=== PATIENT | female | born 1930 | race Two or more races ===

== ENCOUNTER 2018-09-15 14:17 | Inpatient (IN) | payer MEDICARE ==
[~2018-09-15] VITALS: Ht 154.9 cm; Wt 46.3 kg
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
[2018-09-15 14:54] LABS: BILIRUBIN,URINE Negative (NEGATIVE); BLOOD, URINE Trace-intact Ery/uL (NEGATIVE); COLOR,URINE Yellow (YELLOW); KETONES,URINE Trace (NEGATIVE); LEUKOCYTE ESTERASE ,URINE Negative (NEGATIVE); NITRITE, URINE Negative (NEGATIVE); PROTEIN,URINE Trace mg/dl (NEGATIVE); UGLUCOSE Negative (NEGATIVE); UROBILINOGEN,URINE 0.2 EU/dL (0.2)
[2018-09-15 14:55] LABS: APPEARANCE,URINE Hazy (CLEAR)
[2018-09-15] MEDS ORDERED: IV NS 0.9% 1,000 ML BAG IV ONE (15:00)
[2018-09-15 15:01] LABS: BACTERIA,URINE Rare /HPF (None Seen); SQUAMOUS EPITHELIAL CELL,UR Few /HPF (None Seen); WBC,URINE 0-3 /HPF (0-3)
[2018-09-15 15:06] LABS: BASOPHILS % (AUTO) 0.4 % (0.0-2.0); EOSINOPHILS % (AUTO) 1.5 % (0.0-6.0); HEMATOCRIT 36 % (33-45); HEMOGLOBIN 11.4 g/dL (11.5-14.8); LYMPHOCYTES # (AUTO) 1.5 /CMM (0.8-4.8); LYMPHOCYTES % (AUTO) 24.1 % (20.0-44.0); MEAN CORPUSCULAR HGB CONC 32 g/dl (31.0-36.0); MEAN CORPUSCULAR VOLUME 87 fL (82-100); MONOCYTES # (AUTO) 0.6 /CMM (0.1-1.30); MONOCYTES % (AUTO) 8.6 % (2.0-12.0); NEUTROPHILS # (AUTO) 4.2 /CMM (1.8-8.9); NEUTROPHILS % (AUTO) 65.4 % (43.0-81.0); PLATELET COUNT (AUTO) 262 /CMM (150-450); RED BLOOD CELL COUNT(AUTO) 4.15 MIL/uL (4.0-5.2); WHITE BLOOD COUNT (AUTO) 6.4 K/uL (4.3-11.0)
[2018-09-15 15:12] LABS: CALCIUM, SERUM 9.2 mg/dL (8.5-10.1); CARBON DIOXIDE 33 mmol/L (21-32); CHLORIDE 106 mmol/L (98-107); CREATININE 0.8 mg/dL (0.6-1.3); GLUCOSE 97 mg/dL (74-106); POTASSIUM 4.7 mmol/L (3.5-5.1); SODIUM SERUM 142 mmol/L (136-145); UREA NITROGEN, BLOOD 13 mg/dL (7-18)
[2018-09-15 15:17] LABS: ALANINE AMINOTRANSFERASE 16 U/L (12-78); ALBUMIN 3.4 g/dL (3.4-5.0); ALKALINE PHOSPHATASE 76 U/L (46-116); ASPARTATE AMINOTRANSFERASE 16 U/L (15-37); BILIRUBIN,DIRECT 0.1 mg/dL (0.0-0.2); BILIRUBIN,TOTAL 0.2 mg/dL (0.2-1.0); TOTAL PROTEIN, SERUM 6.9 g/dL (6.4-8.2)
[2018-09-15 15:19] LABS: ACETAMINOPHEN 0 ug/ml (10-30); SALICYLATE 0.7 mg/dL (2.8-20.0)
[2018-09-15 15:33] LABS: THYROID STIMULATING HORMONE 5.972 uIU/mL (0.358-3.74)
--- NOTE | 2018-09-15 17:20 | NUR ---
CALLED MANNEQUIN WIG MAKER REAL ETA IS 60 MINS
--- NOTE | 2018-09-15 17:56 | NUR ---
sitter at bedside due to patient keep getting out of bed and pulling out her IV. Will continue to monitor accordingly.
--- NOTE | 2018-09-15 18:36 | NUR ---
pinky VENUE ATTENDANT at bedside for eval.
--- NOTE | 2018-09-15 19:20 | NUR ---
RECEIVED REPORT FROM GABINO PALM FOR SHELLY. PT RESTING IN BED WITH SIDE RAILS UP X2. NO S/S OF ACUTE DISTRESS NOTED. PT'S CAREGIVER BEDSIDE WITH PT. PT ON MONITOR AND POX. WILL CONTINUE TO MONITOR PT FOR COMFORT AND SAFETY.
--- NOTE | 2018-09-15 20:05 | NUR ---
REPORT GIVEN TO AURORA ROCKWELL RN [facility] FOR SHELLY.
[2018-09-15] MEDS ORDERED: LEVO25TA7 GT (20:16)
--- NOTE | 2018-09-15 20:25 | NUR ---
GPS 219-A
--- NOTE | 2018-09-15 20:55 | NUR ---
SPOKE TO AURORA MINE UTILITY OPERATOR USHA, SHE STATED SHE WILL BE REMOVING THE PT'S IV.
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
[2018-09-15] MEDS ORDERED: ACETAMINOPHEN 325 MG TABLET PO PRN (22:00)
[2018-09-15] MEDS ORDERED: MAGNESIUM HYDROXIDE 30 ML UDC PO PRN (22:00)
[2018-09-15] MEDS ORDERED: clonazePAM 0.5 MG TABLET PO PRN (22:00)
[2018-09-15] MEDS ORDERED: MAG HYDROX/AL HYDROX/SIMETH 30 ML UDC PO PRN (22:00)
[2018-09-16] MEDS ORDERED: Z GUARD REMEDY 2 OZ OINT TP PRN (06:30)
[2018-09-16 08:00] VITALS: BP 150/92
--- NOTE | 2018-09-16 08:02 | NUR ---
RN-CO: Patient is high fall risk, needs assistance in ADL. 1:[address] Roberson.
[2018-09-16 08:14] LABS: CHOLESTEROL 189 mg/dL (<200); HDL CHOLESTEROL 76 mg/dL (40-60); LDL 97 mg/dL (0-99); TRIGLYCERIDES 99 mg/dL (30-150)
[2018-09-16 08:27] LABS: ALANINE AMINOTRANSFERASE 13 U/L (12-78); ALKALINE PHOSPHATASE 64 U/L (46-116); ASPARTATE AMINOTRANSFERASE 17 U/L (15-37); BILIRUBIN,TOTAL 0.3 mg/dL (0.2-1.0); CALCIUM, SERUM 8.7 mg/dL (8.5-10.1); CARBON DIOXIDE 28 mmol/L (21-32); CHLORIDE 108 mmol/L (98-107); CREATININE 0.8 mg/dL (0.6-1.3); GLUCOSE 87 mg/dL (74-106); POTASSIUM 3.9 mmol/L (3.5-5.1); SODIUM SERUM 144 mmol/L (136-145); TOTAL PROTEIN, SERUM 6.2 g/dL (6.4-8.2); UREA NITROGEN, BLOOD 13 mg/dL (7-18)
[2018-09-16] MEDS: LEVOTHYROXINE SODIUM 25 MCG TABLET PO SCH (08:51)
--- NOTE | 2018-09-16 09:57 | NUR ---
BENNY contacted Frankie from [facility] ([phone]) and inquired about whether or not the pt can return to their facility upon discharge. He stated that once the pt is deemed stable, they will come evaluate and then determine if they will re-accept the pt.
--- NOTE | 2018-09-16 10:06 | NUR ---
SW called pt's DPOA, Yadira ([phone]), and informed her that the SW contacted [facility] and was informed that an evaluation upon discharge will determine whether or not the pt can return. BENNY stated that if the facility does not accept the pt back that the SW will secure alternative placement for the pt.
--- NOTE | 2018-09-16 12:15 | NUR ---
SW met the pt's DPOA, Yadira ([phone]), and the pt's academic hospitalist, Thaddeus Lock ([phone]), and discussed the pt's initial discharge plan. SW informed them that the pt may not be able to return to [facility] if upon evaluation they do not deem her appropriate for their facility and then the SW stated that she would find an alternative placement for the pt in that situation. BENNY informed them that she will keep them both updated.
[2018-09-16 16:00] VITALS: BP 142/69
[2018-09-16] MEDS: busPIRone 5 MG TABLET PO SCH (16:24)
[2018-09-16] MEDS ORDERED: SERTRALINE HCL 25 MG TABLET PO SCH (17:00)
[2018-09-16] MEDS: ENSURE ENLIVE 237 ML LIQUID (VANILLA) PO SCH (17:49)
[2018-09-16 20:00] VITALS: BP 147/77
[2018-09-16] MEDS: TEMAZEPAM 7.5 MG CAPSULE PO PRN (21:00)
--- NOTE | 2018-09-16 21:02 | NUR ---
TEMAZEPAM 7.5 MG CAP PO GIVEN FOR SLEEP. PATIENT KEEPS GETTING UP TO THE BATHROOM. SITTER AT THE BEDSIDE.
[2018-09-17 08:00] VITALS: BP 147/71
--- NOTE | 2018-09-17 10:47 | NUR ---
WOUND CARE CONSULT: PT REFUSED SKIN ASSESSMENT. WILL SEE PT PT CONDITION PERMITS. DISCUSSED SKIN PROTECTION WITH NURSING STAFF. PT AMBULATORY PER NURSING STAFF. CURRENT ISAAC SCORE IS 19.
[2018-09-17] MEDS: busPIRone 5 MG TABLET PO SCH ×2 (11:24→16:19)
[2018-09-17] MEDS: LEVOTHYROXINE SODIUM 25 MCG TABLET PO SCH (11:24)
--- NOTE | 2018-09-17 11:26 | NUR ---
WOUND CARE CONSULT: PT PRESENTS WITH BLANCHABLE REDNESS TO MIDBACK AND SACRUM, LEFT LOWER LEG BRUISING, PRESENT ON ADMISSION. PER NURSING DOCUMENTATION, RT LOWER LEG BRUISING PRESENT ON ADMISSION. RT ANTERIOR LOWER LEG HAS SKIN TEAR. RECOMMEND DPM CONSULT. PT IS THIN AND BONY. PT NOTED TO HAVE SKIN LESIONS TO BACK, PRESENT ON ADMISSION. RECOMMENDATIONS MADE FOR SKIN PROTECTION. DISCUSSED WITH NURSING STAFF. WILL SEE PRN. CURRENT ISAAC SCORE IS 19. SITTER AT BEDSIDE. MD IN AGREEMENT WITH PLAN OF CARE. Addendum: 09/17/18 at 1129 by SIM VACA WNDNU Amended: Links added.
[2018-09-17] MEDS: ENSURE ENLIVE 237 ML LIQUID (VANILLA) PO SCH ×2 (11:27→17:34)
--- NOTE | 2018-09-17 12:04 | NUR ---
Initial Discharge Plan: Pt currently resides at [facility] located at [address] [place] [id number]; . Per pt, she wants to return to her "home." BENNY contacted Frankie from [facility] and he stated that the pt can return upon evaluation. BENNY will work with the pt and the MD regarding appropriate discharge planning. BENNY will form a safe and proper discharge.
[2018-09-17 16:00] VITALS: BP 127/67
[2018-09-17] MEDS: SERTRALINE HCL 25 MG TABLET PO SCH (16:20)
--- NOTE | 2018-09-17 19:24 | NUR ---
PATIENT LAYING IN BED AWAKE, ALERT, INTERACTS WHEN ENGAGED. HAS 1:1 SITTER FOR SAFETY, HIGH RISK FOR FALL. INSTRUCTED TO ASK FOR HELP AT ALL TIMES.
[2018-09-17 20:00] VITALS: BP 130/60
[2018-09-17] MEDS: QUETIAPINE FUMARATE 25 MG TABLET PO SCH (21:42)
[2018-09-17] MEDS: TEMAZEPAM 7.5 MG CAPSULE PO PRN (21:43)
[2018-09-18 08:00] VITALS: BP 160/72
[2018-09-18] MEDS: LEVOTHYROXINE SODIUM 25 MCG TABLET PO SCH (09:01)
[2018-09-18] MEDS: busPIRone 5 MG TABLET PO SCH ×3 (09:01→17:30)
[2018-09-18] MEDS: ENSURE ENLIVE 237 ML LIQUID (VANILLA) PO SCH ×2 (09:02→17:30)
[2018-09-18 11:24] VITALS: BP 103/53
[2018-09-18 16:00] VITALS: BP 132/72
[2018-09-18] MEDS: SERTRALINE HCL 25 MG TABLET PO SCH ×2 (17:00→17:30)
[2018-09-18 20:00] VITALS: BP 151/82
[2018-09-18] MEDS: QUETIAPINE FUMARATE 25 MG TABLET PO SCH (21:14)
[2018-09-19 08:00] VITALS: BP 142/72
[2018-09-19] MEDS: LEVOTHYROXINE SODIUM 25 MCG TABLET PO SCH (08:32)
[2018-09-19] MEDS: busPIRone 5 MG TABLET PO SCH ×2 (08:38→16:24)
[2018-09-19] MEDS: ENSURE ENLIVE 237 ML LIQUID (VANILLA) PO SCH ×2 (08:38→16:24)
[2018-09-19 16:00] VITALS: BP 134/76
[2018-09-19] MEDS: SERTRALINE HCL 25 MG TABLET PO SCH (16:24)
[2018-09-19 20:21] VITALS: BP 111/65
[2018-09-19] MEDS: QUETIAPINE FUMARATE 25 MG TABLET PO SCH (21:14)
[2018-09-20] MEDS: TEMAZEPAM 7.5 MG CAPSULE PO PRN (00:28)
--- NOTE | 2018-09-20 00:30 | NUR ---
GPS RN NOTES : NOTED PT. VERY RESTLESS CONOT SLEEP , RESTORIL 7.5 MG PO PRN GIVE, WILL CONTINUE TO MONITOR.
--- NOTE | 2018-09-20 07:19 | NUR ---
GPS RN NOTES: PT. RESTING IN HER BED , AT BED SIDE SITTER FOR SAFETY, WILL ENDORSE TO ON COMING NURSE TO CONTINUITY OF CARE.
[2018-09-20 08:00] VITALS: BP 124/56
[2018-09-20] MEDS: LEVOTHYROXINE SODIUM 25 MCG TABLET PO SCH (08:16)
[2018-09-20] MEDS: busPIRone 5 MG TABLET PO SCH ×2 (09:21→17:13)
[2018-09-20] MEDS: ENSURE ENLIVE 237 ML LIQUID (VANILLA) PO SCH ×2 (09:21→17:13)
--- NOTE | 2018-09-20 10:17 | NUR ---
BENNY contacted Frankie from [facility] ([phone]) and informed him that the pt is going to be discharged on Thursday and he stated that he will come evaluate the pt the following day.
[2018-09-20 16:00] VITALS: BP 133/54
[2018-09-20] MEDS: SERTRALINE HCL 25 MG TABLET PO SCH (17:13)
[2018-09-20 19:55] VITALS: BP 153/82
[2018-09-20] MEDS: QUETIAPINE FUMARATE 25 MG TABLET PO SCH (22:06)
[2018-09-20 23:00] VITALS: BP 120/72
[2018-09-21 08:00] VITALS: BP 149/73
[2018-09-21] MEDS: ENSURE ENLIVE 237 ML LIQUID (VANILLA) PO SCH ×2 (08:17→17:26)
[2018-09-21] MEDS: busPIRone 5 MG TABLET PO SCH ×2 (08:17→17:26)
[2018-09-21] MEDS: LEVOTHYROXINE SODIUM 25 MCG TABLET PO SCH (08:17)
--- NOTE | 2018-09-21 10:20 | NUR ---
BENNY called pt's DPOA, Yadira ([phone]), and left her a message that informed her that the pt is going to be evaluated today by [facility] and if they are willing to accept the pt back she will be discharged the following day.
--- NOTE | 2018-09-21 11:06 | NUR ---
BENNY faxed an updated inquiry to [facility] with attention to Frankie to the fax number: [phone].
--- NOTE | 2018-09-21 14:24 | NUR ---
BENNY met with Frankie from [facility] ([phone]) after his evaluation of the pt and he stated that the facility will take the pt back. BENNY informed him that she would schedule the ambulance for tomorrow around 11am.
--- NOTE | 2018-09-21 14:25 | NUR ---
BENNY called pt's DPOA, Yadira ([phone]), and informed her that the pt will be discharged tomorrow back to [facility] at around 11AM. Pt's DPOA stated that she will visit the pt in the morning.
[2018-09-21 16:00] VITALS: BP 146/62
[2018-09-21] MEDS: SERTRALINE HCL 25 MG TABLET PO SCH (17:26)
[2018-09-21 20:26] VITALS: BP 142/70
[2018-09-21] MEDS: QUETIAPINE FUMARATE 25 MG TABLET PO SCH (21:09)
[2018-09-22 08:00] VITALS: BP 130/54
[2018-09-22] MEDS: LEVOTHYROXINE SODIUM 25 MCG TABLET PO SCH (09:00)
[2018-09-22] MEDS: busPIRone 5 MG TABLET PO SCH (09:00)
[2018-09-22] MEDS: ENSURE ENLIVE 237 ML LIQUID (VANILLA) PO SCH (09:03)
--- NOTE | 2018-09-22 12:20 | NUR ---
PATIENT DISCHARGED TO [facility] IN STABLE CONDITION, NO SOB, NO ACUTE DISTRESS, BREATHING EVEN AND UNLABORED, DENIES PAIN AND DISCOMFORT, DENIES SI/HI/AH/VH, REPORT GIVEN TO PRAVEEN LLOYD, SPOKE TO PETE WINTER REGARDING THE CODE STATUS OF THE PATIENT, PATIENT PICKED UP VIA [facility] C/O OLGA LIDIA. DISCHARGED.
--- NOTE | 2018-09-22 14:15 | NUR ---
Discharge Note: Pt was discharged to [facility] ([facility]) located at [address] [place] [id number]; . Pt will be transported via [facility] (Trip #[id number]) at 11AM. Pts DPOA, Yadira ([phone]), was notified. Upon discharge, the pt appeared to be in a euthymic mood and presented with a distressed affect. Pt stated that she was confused because she did not remember the facility that she came from and SW explained she was just there for one day. SW explained that the pt was placed there and her DPOA had agreed to it. Pt denied both suicidal and homicidal ideation as well as auditory and visual hallucinations. Pt will be under the care of her psychiatrist, Dr. Roberson, located at [address], [address] [place] [address]; and her director field services, Dr. Eli Agrawal, located at [address] [place] [address]; .
== END 2018-09-22 12:20 | DRG 885 ==
LOC: ER 14:22 → GPS 20:51
PROVIDERS: ADMIT Psychiatry & Neurology Psychosomatic Medicine; ATTEND Psychiatry & Neurology Psychosomatic Medicine
DX: F29 Unspecified psychosis not due to a substance or known physiological condition (principal); F01.51 Vascular dementia, unspecified severity, with behavioral disturbance; F02.81 Dementia in other diseases classified elsewhere, unspecified severity, with behavioral disturbance; E44.0 Moderate protein-calorie malnutrition; Z68.1 Body mass index [BMI] 19.9 or less, adult; E78.5 Hyperlipidemia, unspecified; E03.9 Hypothyroidism, unspecified; I10 Essential (primary) hypertension; F32.9 Major depressive disorder, single episode, unspecified; G30.9 Alzheimer's disease, unspecified; I34.1 Nonrheumatic mitral (valve) prolapse; K21.9 Gastro-esophageal reflux disease without esophagitis; K59.00 Constipation, unspecified; D64.9 Anemia, unspecified; F41.9 Anxiety disorder, unspecified; D69.2 Other nonthrombocytopenic purpura; Z86.73 Personal history of transient ischemic attack (TIA), and cerebral infarction without residual deficits; K62.3 Rectal prolapse; F39 Unspecified mood [affective] disorder; Z87.891 Personal history of nicotine dependence; T14.8XXA Other injury of unspecified body region, initial encounter
CPT/HCPCS: 36415; 70450-TC; 71045-TC; 80048-TC; 80053-TC; 80061-TC; 80076-TC; 80305; 81000-TC; 83605-TC; 84443-TC; 84484-TC; 85025-TC; 85730-TC; 87040-TC; 87081-TC; 87086-TC; G0480; J7030

== ENCOUNTER 2019-02-19 15:14 | Inpatient (IN) | payer MEDICARE ==
[~2019-02-19] VITALS: Ht 167.6 cm; Wt 59.0 kg
[~2019-02-19 15:14] MED LIST: LEVO25TA7 PO
--- NOTE | 2019-02-19 15:20 | NUR ---
[id number], FROM [facility], SHORTNESS OF BREATH, 80% ON 2LPM. ON ASSESSMENT, PT NONVERBAL. NODS/SHAKES HER HEAD WHEN ASKED QUESTIONS. PER PARAMEDICS, PT IS AT BASELINE. CAME IN ON NON-REBREATHER AT 10L O2 SATTING AT 92%. DNR STATUS. UNABLE TO OBTAIN FURTHER INFORMATION DUE TO PT CONDITION. SKIN INTACT AND NO ACUTE DISTRESS NOTED. ON MONITOR AND READY FOR EVAL.
[2019-02-19] MEDS ORDERED: MULT-447 PO (15:21)
[2019-02-19] MEDS ORDERED: BUSP10TA35 PO (15:21)
[2019-02-19] MEDS ORDERED: MAGN400O6 PO (15:21)
[2019-02-19] MEDS ORDERED: SERT25TA PO (15:21)
[2019-02-19] MEDS ORDERED: QUET25TA PO (15:21)
[2019-02-19] MEDS ORDERED: NA P133E RC (15:21)
[2019-02-19] MEDS ORDERED: ASPI-1169 PO (15:21)
[2019-02-19] MEDS ORDERED: ACET-2605 PO (15:21)
[2019-02-19] MEDS ORDERED: ACET-868 PO (15:21)
[2019-02-19] MEDS ORDERED: BISA10SU11 RC (15:21)
[2019-02-19] MEDS ORDERED: SENN-168 PO (15:21)
[2019-02-19 16:00] LABS: BASOPHILS % (AUTO) 0.3 % (0.0-2.0); HEMATOCRIT 37 % (33-45); HEMOGLOBIN 11.1 g/dL (11.5-14.8); LYMPHOCYTES # (AUTO) 0.2 /CMM (0.8-4.8); LYMPHOCYTES % (AUTO) 2.4 % (20.0-44.0); MEAN CORPUSCULAR HGB CONC 30 g/dl (31.0-36.0); MEAN CORPUSCULAR VOLUME 80 fL (82-100); MONOCYTES % (AUTO) 11.1 % (2.0-12.0); NEUTROPHILS # (AUTO) 7.7 /CMM (1.8-8.9); NEUTROPHILS % (AUTO) 86.2 % (43.0-81.0); PLATELET COUNT (AUTO) 287 /CMM (150-450); RED BLOOD CELL COUNT(AUTO) 4.64 MIL/uL (4.0-5.2); WHITE BLOOD COUNT (AUTO) 8.9 K/uL (4.3-11.0)
[2019-02-19 16:09] LABS: CALCIUM, SERUM 9.4 mg/dL (8.5-10.1); CARBON DIOXIDE 30 mmol/L (21-32); CHLORIDE 105 mmol/L (98-107); CREATININE 0.9 mg/dL (0.6-1.3); GLUCOSE 148 mg/dL (74-106); POTASSIUM 4.5 mmol/L (3.5-5.1); SODIUM SERUM 143 mmol/L (136-145); UREA NITROGEN, BLOOD 30 mg/dL (7-18)
[2019-02-19 16:23] LABS: ALANINE AMINOTRANSFERASE 19 U/L (12-78); ALBUMIN 2.4 g/dL (3.4-5.0); ALKALINE PHOSPHATASE 75 U/L (46-116); ASPARTATE AMINOTRANSFERASE 28 U/L (15-37); B-TYPE NATRIURETIC PEPTIDE 3095 PG/ML (0-125); BILIRUBIN,DIRECT 0.4 mg/dL (0.0-0.2); BILIRUBIN,TOTAL 0.7 mg/dL (0.2-1.0); TOTAL PROTEIN, SERUM 6.8 g/dL (6.4-8.2)
--- NOTE | 2019-02-19 16:37 | NUR ---
PT REMOVED MASK FROM FACE, SATTING AT 60%. REPLACED MASK AND MADE MORE COMFORTABLE, SATTING AT 95%. NOW RESPONDING VERBALLY, BUT VERY SOFT-SPOKEN AND DIFFICULT TO UNDERSTAND AT TIMES. WILL CONT TO MONITOR
--- NOTE | 2019-02-19 17:05 | NUR ---
PT'S POA AT BEDSIDE. PLEASE CONTACT FOR UDPATE [phone]. STATES PT'S ELECTRICAL MANAGER WILL COME BY LATER.
[2019-02-19] MEDS ORDERED: IOHEXOL-350 100 ML VIAL IV ONE (17:07)
[2019-02-19] MEDS ORDERED: FUROSEMIDE 100 MG/10 ML VIAL ONE (17:19)
--- NOTE | 2019-02-19 17:20 | NUR ---
PT TAKEN TO CT VIA [facility]
[2019-02-19] MEDS ORDERED: FUROSEMIDE 40 MG/4 ML VIAL IV ONE (17:30)
[2019-02-19] MEDS ORDERED: CEFTRIAXONE 1 G in IV D5W 50 ML IV ONE (17:30)
[2019-02-19] MEDS ORDERED: MAGNESIUM HYDROXIDE 30 ML UDC PO PRN (17:30)
[2019-02-19] MEDS ORDERED: ZOLPIDEM TARTRATE 5 MG TABLET PO PRN (17:30)
[2019-02-19] MEDS ORDERED: MAG HYDROX/AL HYDROX/SIMETH 30 ML UDC PO PRN (17:30)
[2019-02-19] MEDS ORDERED: HYDROCODONE/APAP 5/325MG 1 EACH TABLET PO PRN (17:30)
[2019-02-19] MEDS ORDERED: VANCOMYCIN 1 GM in IV D5W 250 ML IV ONE (17:30)
[2019-02-19] MEDS ORDERED: Z GUARD REMEDY 2 OZ OINT TP PRN (17:30)
[2019-02-19] MEDS ORDERED: ACETAMINOPHEN 325 MG TABLET PO PRN (17:30)
[2019-02-19] MEDS ORDERED: CEFTRIAXONE 1GM BAG (ER ONLY) 1 GM/50 ML PIGGYBACK IV ONE (17:30)
[2019-02-19] MEDS ORDERED: BISACODYL SUPP (10 MG) 10 MG/SUPP.RECT SUPP.RECT RC PRN (17:30)
[2019-02-19] MEDS ORDERED: ONDANSETRON HCL/PF 4 MG/2 ML VIAL IVP PRN (17:30)
[2019-02-19] MEDS ORDERED: PIPERACILLIN /TAZOBACTAM 4.5 G in IV D5W 50 ML IV SCH (18:00)
--- NOTE | 2019-02-19 18:02 | NUR ---
REPORT GIVEN TO GABINO JARQUIN FOR [id number] MS, PULMONARY EDEMA, RONN
--- NOTE | 2019-02-19 18:34 | NUR ---
[facility]
[2019-02-19] MEDS ORDERED: FEE PK DOSING 1 MIN EA MC ONE (18:37)
[2019-02-19 19:00] VITALS: BP 156/86
[2019-02-19] MEDS ORDERED: PIPERACILLIN /TAZOBACTAM 3.375 G in IV D5W 50 ML IV SCH (19:00)
--- NOTE | 2019-02-19 19:13 | NUR ---
TELE/TELEVISION NEWS VIDEO EDITOR PATIENT ADMITTED FROM ER TRANSFERRED VIA GURNEY ACCOMPANIED BY EMT AND RN. A/O X 1, NO SIGNS OF ACUTE DISTRESS AT THIS TIME. ON NON REBREATHER MASK AT 10LPM TOLERATING WELL.
--- NOTE | 2019-02-19 19:15 | NUR ---
CYLINDER BLOCK MECHANIC NOTES RECEIVED REPORT FOR CHRISTINA RN,PATIENT CAME AT 1830 FROM ER,FROM [facility],BROUGHT HERE DUE TO DECREASED O2 SAT AT 80'S.ALERT,ORIENTED X1,WITH LIMITED VERBAL RESPONSE.SALINE LOCK LEFT FOREARM INTACT AND PATENT.NOTED SKIN DISCOLORATION ON UPPER AND LOWER EXTREMITIES.ON NONE RE BREATHER MASK AT 10 LITERS,O2 SAT 95%.INCONTINENT OF URINE.FALL RISK,FALL PRECAUTION OBSERVED.BED ON LOWEST POSITION AND LOCKED.WILL CONTINUE TO MONITOR STATUS.
--- NOTE | 2019-02-19 19:20 | NUR ---
TELE/RN PATIENT ADMITTED FROM ER TRANSFERRED VIA GURNEY ACCOMPANIED BY EMT AND RN. A/O X 1. NO SIGNS OF ACUTE DISTRESS. ON NON REBREATHER MASK AT 10LPM OXYGEN TOLERATING WELL. NO COMPLAIN OF PAIN. REPORT GIVEN BY CHANDNI RN FROM ER. ENDORSE TO NEXT SHIFT RN MARIA DE JESUS FOR CHANGE OF CONDITION.
[2019-02-19 20:00] VITALS: BP 138/74
[2019-02-19] MEDS: PIPERACILLIN /TAZOBACTAM 3.375 G in IV D5W 50 ML IV SCH (20:14)
--- NOTE | 2019-02-19 20:14 | NUR ---
CASH ANALYST NOTES STARTED ZOSYN 3.375GM IVPB ORDERED.
--- NOTE | 2019-02-19 20:30 | NUR ---
FOIL SPOOLER NOTES SEEN AND EXAMINED BY DR BRODY WITH ORDER TO PUT O2 AT 6LITERS/NC.O2 SAT 95%.
[2019-02-19] MEDS: ENOXAPARIN SODIUM 40 MG/0.4 ML DISP.SYRIN SQ SCH (20:42)
--- NOTE | 2019-02-19 20:42 | NUR ---
PROGRAM DIRECTOR AIR TALENT NOTES STARTED ON LOVENOX 40MG SQ ORDERED.
[2019-02-19] MEDS: SENNOSIDES 8.6 MG TABLET PO SCH (22:00)
[2019-02-19] MEDS: QUETIAPINE FUMARATE 25 MG TABLET PO SCH (22:00)
[2019-02-20] VITALS (8 sets, daily range): BP systolic 108–131; BP diastolic 45–70
[2019-02-20] MEDS: PIPERACILLIN /TAZOBACTAM 3.375 G in IV D5W 50 ML IV SCH ×4 (00:55→16:58)
--- NOTE | 2019-02-20 03:20 | NUR ---
FREELANCE WRITER NOTES SPOKE WITH HOSPITALIST GWEN DOSHI,MADE AWARE THAT PATIENT HAS POLST OF DNR STATUS BUT NO ORDER.DR DOSHI ORDERED ANYWAY DNR STATUS,WITNESSED BY ALMA ANGULO RN
[2019-02-20 04:27] LABS: BASOPHILS % (AUTO) 0.2 % (0.0-2.0); HEMATOCRIT 39 % (33-45); HEMOGLOBIN 11.7 g/dL (11.5-14.8); LYMPHOCYTES # (AUTO) 0.5 /CMM (0.8-4.8); LYMPHOCYTES % (AUTO) 5.1 % (20.0-44.0); MEAN CORPUSCULAR HGB CONC 30 g/dl (31.0-36.0); MEAN CORPUSCULAR VOLUME 78 fL (82-100); MONOCYTES # (AUTO) 1.3 /CMM (0.1-1.30); MONOCYTES % (AUTO) 12.9 % (2.0-12.0); NEUTROPHILS # (AUTO) 8.5 /CMM (1.8-8.9); NEUTROPHILS % (AUTO) 81.8 % (43.0-81.0); PLATELET COUNT (AUTO) 328 /CMM (150-450); RED BLOOD CELL COUNT(AUTO) 4.92 MIL/uL (4.0-5.2); WHITE BLOOD COUNT (AUTO) 10.5 K/uL (4.3-11.0)
--- NOTE | 2019-02-20 04:30 | NUR ---
MS LLOYD NOTES RECEIVED CALL FROM GWEN CASTLE,WITH ORDER TO GIVE FFP 1 UNIT POST TRANSFUSION OF 2 UNITS PRBC. Addendum: 02/20/19 at 0506 by MARIA DE JESUS HATHAWAY RN WRONG ENTRY OF NOTES,NOT FOR THIS PATIENT.
[2019-02-20 05:37] LABS: ALANINE AMINOTRANSFERASE 16 U/L (12-78); ALBUMIN 2.5 g/dL (3.4-5.0); ALKALINE PHOSPHATASE 95 U/L (46-116); ASPARTATE AMINOTRANSFERASE 27 U/L (15-37); BILIRUBIN,TOTAL 0.5 mg/dL (0.2-1.0); CALCIUM, SERUM 9.1 mg/dL (8.5-10.1); CARBON DIOXIDE 32 mmol/L (21-32); CHLORIDE 98 mmol/L (98-107); CREATININE 1.2 mg/dL (0.6-1.3); GLUCOSE 109 mg/dL (74-106); MAGNESIUM 1.8 mg/dL (1.8-2.4); PHOSPHORUS 3.9 mg/dL (2.5-4.9); POTASSIUM 4.5 mmol/L (3.5-5.1); SODIUM SERUM 140 mmol/L (136-145); TOTAL PROTEIN, SERUM 7.4 g/dL (6.4-8.2); UREA NITROGEN, BLOOD 35 mg/dL (7-18)
[2019-02-20 05:40] LABS: CHOLESTEROL 110 mg/dL (<200); HDL CHOLESTEROL 47 mg/dL (40-60); LDL 50 mg/dL (0-99); TRIGLYCERIDES 76 mg/dL (30-150)
--- NOTE | 2019-02-20 06:13 | NUR ---
AGRICULTURAL ECONOMIST NOTES SR-84 WITH PVC'S.REMAINS LETHARGIC,O2 AT 6L/NC TOLERATED WELL,O2 SAT 94%.SALINE LOCK REMAINS PATENT.DNR STATUS WITH POLST.IN NO ACUTE DISTRESS.WILL ENDORSE TO DAY NURSE FOR SHELLY.
--- NOTE | 2019-02-20 07:30 | NUR ---
VOLLEYBALL PLAYER OPENING NOTES RECEIVED PT IN BED, ASLEEP, EASILY AROUSED. ON SUPPLEMENTARY OXYGEN AT 6L VIA NC, WITH NO ACUTE RESPIRATORY DISTRESS NOTED. ON TELEMONITORING, SR 82 WITH PVCS. PT NOT EXHIBITING ANY PAIN OR DISCOMFORT AT THIS TIME. PT DENIES ANY CONCERNS OR QUESTIONS AT THE MOMENT WELL. PIV TO LFA G20 SL, FLUSHED WITH NS, INTACT AND OPERATIONAL. PT KEPT COMFORTABLE. PT'S BED IN LOWEST, LOCKED POSITION WITH SR X3. CALL LIGHT KEPT WITHIN REACH. WILL CONTINUE PLAN OF CARE.
[2019-02-20] MEDS: LEVOTHYROXINE SODIUM 50 MCG TABLET PO SCH (08:05)
[2019-02-20] MEDS: busPIRone 5 MG TABLET PO SCH ×2 (08:59→16:12)
[2019-02-20] MEDS: ASPIRIN 81 MG TAB.CHEW PO SCH (08:59)
[2019-02-20] MEDS: MULTIVIT W/MINERALS 1 TAB TABLET PO SCH (08:59)
[2019-02-20] MEDS ORDERED: FUROSEMIDE 40 MG/4 ML VIAL IV SCH (09:00)
[2019-02-20] MEDS: VANCOMYCIN 0.75 GM in IV D5W 250 ML IV SCH (09:14)
[2019-02-20] MEDS ORDERED: ASPIRIN 81 MG TAB.CHEW PO SCH (11:30)
--- NOTE | 2019-02-20 12:30 | NUR ---
RN NOTES REPORT GIVEN TO MCDONOUGH/RN TO TAKE OVER FOR PT'S CARE.
--- NOTE | 2019-02-20 12:57 | NUR ---
care taken over,appeared sleepy, but arousable on voices, and tactile stimuli. on 6liter NC, no humidifier seen, added it no.. Sat at this time 98%, will see whether we can wean her down
[2019-02-20] MEDS: LACTOBACILLUS RHAMNOSUS GG 1 EACH CAP.SPRINK PO SCH (16:12)
[2019-02-20] MEDS: SERTRALINE HCL 25 MG TABLET PO SCH (16:12)
--- NOTE | 2019-02-20 16:35 | NUR ---
more alert, and awake now, fed lunch, po intake poor, for lunch, only 10% , or 2-3 bites of mashed potatoes, drank 200cc of water. sat on 3liters NC , with humidifier 93%. UA collected. No visitors noted during shift
[2019-02-20 17:46] LABS: APPEARANCE,URINE SL CLOUDY (CLEAR); BILIRUBIN,URINE NEGATIVE (NEGATIVE); BLOOD, URINE NEGATIVE Ery/uL (NEGATIVE); COLOR,URINE YELLOW (YELLOW); KETONES,URINE NEGATIVE (NEGATIVE); LEUKOCYTE ESTERASE ,URINE NEGATIVE (NEGATIVE); NITRITE, URINE NEGATIVE (NEGATIVE); PH,URINE 5.5 (5.0-8.0); PROTEIN,URINE NEGATIVE (NEGATIVE); UGLUCOSE NEGATIVE (NEGATIVE); UROBILINOGEN,URINE 0.2 EU/dL (0.2)
[2019-02-20 17:51] LABS: CREATININE, URINE 25.6 MG/DL (30.0-125.0); URINE TOTAL PROTEIN 39.2 mg/dL (0-11.9)
--- NOTE | 2019-02-20 19:30 | NUR ---
RECEIVED PATIENT IN BED AWAKE. AO X 1, VERBALLY RESPONSIVE. NO ACUTE DISTRESS NOTED. NO SIGNS OF PAIN NOTED. IV SITE PATENT, INTACT; FLUSHED. SAFETY REMINDERS GIVEN. ON LOW BED WITH BILATERAL UPPER SIDE RAILS UP. CALL QUINTEROS WITHIN EASY REACH. WILL CONTINUE TO MONITOR.
[2019-02-20] MEDS: ENOXAPARIN SODIUM 40 MG/0.4 ML DISP.SYRIN SQ SCH (20:17)
[2019-02-20 20:25] LABS: EOSINOPHIL,URINE None Seen
[2019-02-20] MEDS: SENNOSIDES 8.6 MG TABLET PO SCH (22:22)
[2019-02-20] MEDS: QUETIAPINE FUMARATE 25 MG TABLET PO SCH (22:22)
[2019-02-21] MEDS: PIPERACILLIN /TAZOBACTAM 3.375 G in IV D5W 50 ML IV SCH ×4 (00:40→17:55)
--- NOTE | 2019-02-21 06:00 | NUR ---
PATIENT ASLEEP, EASILY AROUSABLE. RESPIRATIONS EVEN. NO SIGNS OF PAIN NOTED. DUE MEDS GIVEN WITH NO ASE NOTED. NEEDS ATTENDED. KEPT CLEAN AND DRY. TURNED AND REPOSITIONED Q 2 HOURS. SAFETY PRECAUTIONS AND COMFORT MEASURES IN PLACE. WILL GIVE REPORT TO DAY SHIFT FOR CONTINUITY OF CARE.
--- NOTE | 2019-02-21 07:25 | NUR ---
MS/RN NOTE THE PATIENT IS RECEIVED IN BED. ALERT AND ORIENTED X1. SITTER AT THE BEDSIDE. RECEIVING OXYGEN AT 2L/MIN VIA NASAL CANNULA AND DENIES SOB. RESPIRATION REGULAR AND UNLABORED. DENIES PAIN. THE PATIENT IN NO APPARENT DISTRESS. LFA G 20 PATENT AND SALINE LOCKED. BED LOW AND LOCKED. SIDE RAILS UP X3. CALL LIGHT WITHIN REACH. WILL CONTINUE TO MONITOR.
[2019-02-21 08:00] VITALS: BP 95/50
[2019-02-21 08:32] LABS: BASOPHILS % (AUTO) 0.1 % (0.0-2.0); EOSINOPHILS % (AUTO) 0.3 % (0.0-6.0); HEMATOCRIT 37 % (33-45); HEMOGLOBIN 11.5 g/dL (11.5-14.8); LYMPHOCYTES # (AUTO) 0.6 /CMM (0.8-4.8); MEAN CORPUSCULAR HGB CONC 31 g/dl (31.0-36.0); MEAN CORPUSCULAR VOLUME 77 fL (82-100); MONOCYTES # (AUTO) 0.9 /CMM (0.1-1.30); MONOCYTES % (AUTO) 8.8 % (2.0-12.0); NEUTROPHILS # (AUTO) 8.9 /CMM (1.8-8.9); NEUTROPHILS % (AUTO) 84.8 % (43.0-81.0); PLATELET COUNT (AUTO) 342 /CMM (150-450); RED BLOOD CELL COUNT(AUTO) 4.82 MIL/uL (4.0-5.2); WHITE BLOOD COUNT (AUTO) 10.5 K/uL (4.3-11.0)
[2019-02-21 08:49] LABS: ALANINE AMINOTRANSFERASE 17 U/L (12-78); ALBUMIN 2.2 g/dL (3.4-5.0); ALKALINE PHOSPHATASE 60 U/L (46-116); ASPARTATE AMINOTRANSFERASE 15 U/L (15-37); BILIRUBIN,TOTAL 0.4 mg/dL (0.2-1.0); CALCIUM, SERUM 8.9 mg/dL (8.5-10.1); CARBON DIOXIDE 37 mmol/L (21-32); CHLORIDE 101 mmol/L (98-107); CREATININE 1.3 mg/dL (0.6-1.3); GLUCOSE 133 mg/dL (74-106); PHOSPHORUS 3.5 mg/dL (2.5-4.9); POTASSIUM 3.2 mmol/L (3.5-5.1); SODIUM SERUM 143 mmol/L (136-145); TOTAL PROTEIN, SERUM 6.7 g/dL (6.4-8.2); UREA NITROGEN, BLOOD 46 mg/dL (7-18)
[2019-02-21 08:50] LABS: CREATINE KINASE, TOTAL 16 U/L (26-192)
[2019-02-21] MEDS: LACTOBACILLUS RHAMNOSUS GG 1 EACH CAP.SPRINK PO SCH ×2 (08:55→17:35)
[2019-02-21] MEDS: ASPIRIN 81 MG TAB.CHEW PO SCH (08:55)
[2019-02-21] MEDS: MULTIVIT W/MINERALS 1 TAB TABLET PO SCH (08:55)
[2019-02-21] MEDS: LEVOTHYROXINE SODIUM 50 MCG TABLET PO SCH (08:55)
[2019-02-21] MEDS: VANCOMYCIN 0.75 GM in IV D5W 250 ML IV SCH (09:30)
[2019-02-21 10:00] VITALS: BP 101/67
--- NOTE | 2019-02-21 10:09 | NUR ---
MS/RN NOTE BUSPAR 2.5 MG DUE AT 0900 NOT ADMINISTERED DUE TO NOT AVAILABLE IN OMNICELLS. PHARMACY IS MADE AWARE. PER PHARMACY THEY ARE WAITING FOR DELIVERY, ONCE THE MEDICATION IS DELIVERED THEN OMNICELL WILL BE FILLED. WILL CONTINUE TO FOLLOW UP.
[2019-02-21] MEDS: busPIRone 5 MG TABLET PO SCH ×2 (11:29→17:35)
[2019-02-21] MEDS: SERTRALINE HCL 25 MG TABLET PO SCH (17:35)
--- NOTE | 2019-02-21 18:11 | NUR ---
MS/RN NOTE THE PATIENT ALERT AND ORIENTED X1. ABLE TO COMMUNICATE VERBALLY. RECEIVING OXYGEN AT 2L/MIN VIA NASAL CANNULA AND SATURATION IS AT 95%. DENIES SOB. RESPIRATION REGULAR AND UNLABORED. DENIES PAIN. THE PATIENT IN NO APPARENT DISTRESS. LFA G 20 PATENT AND IV ANTIBIOTIC INFUSING PER ORDER AND NO S/S INFILTRATION NOTED. BED LOW AND LOCKED. SIDE RAILS UP X3. SITTER AT THE BEDSIDE. CALL LIGHT WITHIN REACH. WILL ENDORSE TO CIRCUIT COURT JUDGE.
--- NOTE | 2019-02-21 19:45 | NUR ---
RN OPENING NOTES RECEIVED REPORT FROM DAYSHIFT RN, CHANDNI. FOUND Pt AWAKE, RESTING IN BED. NO S/S OF ACUTE DISTRESS OR SOB NOTED. Pt IS A/OX1, VERBAL, WITH BASELINE DEMENTIA & CONFUSION. IV ACCESS ON LFA #20G @TKO. SAFETY MEASURES IN PLACE. BED LOW, LOCKED, HOB ELEVATED, SIDE RAILS UP, CALL LIGHT AND BEDSIDE TABLE WITHIN REACH. BED ALARM ON. WILL CONTINUE TO MONITOR Pt's CONDITION AND SAFETY THROUGHOUT THE NIGHT.
[2019-02-21 20:00] VITALS: BP 141/69
[2019-02-21] MEDS ORDERED: POTASSIUM CHLORIDE 20 MEQ TAB.PRT.SR PO ONE (21:30)
[2019-02-21] MEDS: QUETIAPINE FUMARATE 25 MG TABLET PO SCH (21:37)
[2019-02-21] MEDS: SENNOSIDES 8.6 MG TABLET PO SCH (21:37)
[2019-02-21] MEDS: ENOXAPARIN SODIUM 40 MG/0.4 ML DISP.SYRIN SQ SCH (21:37)
[2019-02-22] MEDS: PIPERACILLIN /TAZOBACTAM 3.375 G in IV D5W 50 ML IV SCH ×4 (00:03→18:30)
--- NOTE | 2019-02-22 07:47 | NUR ---
RN CLOSING NOTES NO SIGNIFICANT CHANGES IN Pt's CONDITION. Pt REMAINS STABLE AT THIS TIME. NO S/S OF ACUTE DISTRESS OR SEVERE SOB NOTED DURING THE NIGHT. Pt IS RESTING IN BED, RESPIRATIONS EVEN AND UNLABORED. ALL NEEDS MET AND ATTENDED TO. SAFETY MEASURES IN PLACE. ENDORSED TO DAYSHIFT RN FOR Pt's SHELLY.
[2019-02-22 08:00] VITALS: BP_SYST 116
[2019-02-22] MEDS: ASPIRIN 81 MG TAB.CHEW PO SCH (09:17)
[2019-02-22] MEDS: MULTIVIT W/MINERALS 1 TAB TABLET PO SCH (09:17)
[2019-02-22] MEDS: LACTOBACILLUS RHAMNOSUS GG 1 EACH CAP.SPRINK PO SCH ×2 (09:17→17:07)
[2019-02-22] MEDS: busPIRone 5 MG TABLET PO SCH ×2 (09:17→17:08)
[2019-02-22] MEDS: LEVOTHYROXINE SODIUM 50 MCG TABLET PO SCH (09:19)
[2019-02-22] MEDS: VANCOMYCIN 0.75 GM in IV D5W 250 ML IV SCH (09:25)
[2019-02-22 11:10] LABS: CALCIUM, SERUM 8.9 mg/dL (8.5-10.1); CARBON DIOXIDE 36 mmol/L (21-32); CHLORIDE 103 mmol/L (98-107); CREATININE 1.4 mg/dL (0.6-1.3); GLUCOSE 205 mg/dL (74-106); POTASSIUM 3.1 mmol/L (3.5-5.1); SODIUM SERUM 144 mmol/L (136-145); UREA NITROGEN, BLOOD 45 mg/dL (7-18)
[2019-02-22] MEDS ORDERED: POTASSIUM CHLORIDE 20 MEQ TAB.PRT.SR PO ONE (12:00)
[2019-02-22] MEDS: methylPREDNISolone SOD SUCC 40 MG/ML VIAL IV SCH ×2 (14:44→22:16)
[2019-02-22 16:00] VITALS: BP 96/54
[2019-02-22] MEDS: SERTRALINE HCL 25 MG TABLET PO SCH (17:09)
--- NOTE | 2019-02-22 19:36 | NUR ---
MS/RN OPENING NOTES RECEIVED PATIENT IN BED, AWAKE, OPENS EYES, CAN RESPOND WITH TOUCH, REQUIRE OXYGEN TO KEEP SATURATION LEVEL OF 91 AT 4 TO 6 l/ PATIENT SKIN WARM TO TOUCH,, RESPIRATIONS EVEN AND UNLABORED, BED LOCKED, CALL LIGHTS WITHIN REACH, WILL MONITOR RECEIVED ENDORSEMENT FROM AM RN FOR SHELLY.AND PROVIDE CARE, FAMILY POA WAS AT BEDSIDE, DISCUSSED PLAN OF CARE WAS REPORTED THAT MD HAVE PLAN FOR PATIENT TO BE DISCHARGE TOMORROE, WILL FOLLOW UP.
[2019-02-22 20:00] VITALS: BP 142/72
--- NOTE | 2019-02-22 20:00 | NUR ---
MS/RN NOTES FAMILY AT BEDSIDE, AND LEFT AFTER , PATIENT RESTING COMFORTABLY,
--- NOTE | 2019-02-22 20:30 | NUR ---
MS/RN NOTES WITNESSED FALL , PATIENT SEEN BY RT WALKING WITH THE POLE AND WAS ASSISTED WITH CHAIR BUT FELL ON THE FLOOR, HEARD A SOUND/ REPORTED TO MD AND LEFT MESSAGE WITH FAMILY, PATIENT VITAL SIGNS CHECK WITH ELEVATED B/P OF 154/65,PULSE 62 OXYGENATION AT 91% AT 5L OXYGEN, ABLE TO FOLLOW SIMPLE COMMANDS, RESPONSIVE, IV LEFT FA REMOVED, WILL REINSERT A NEW ONE. PATIENT SKIN OBSERVED WITH OLD DISCOLORATION. WILL MONITOR.MD ORDER FOR NEURO CHECK AT THIS TIME AND A SITTER TO MONITOR AT ALL TIMES, BED ALARM ON.
--- NOTE | 2019-02-22 22:00 | NUR ---
MS/RN NOTES PATIENT AWAKE, ABLE TO COOPERATE WITH CARE AND SWALLOW PILL WITH WATER, .RESPIRATIONS EVEN AND UNLABORED.
[2019-02-22] MEDS: SENNOSIDES 8.6 MG TABLET PO SCH (22:16)
[2019-02-22] MEDS: QUETIAPINE FUMARATE 25 MG TABLET PO SCH (22:16)
[2019-02-22] MEDS: ENOXAPARIN SODIUM 40 MG/0.4 ML DISP.SYRIN SQ SCH (22:17)
[2019-02-23] MEDS: PIPERACILLIN /TAZOBACTAM 3.375 G in IV D5W 50 ML IV SCH ×5 (00:15→23:19)
--- NOTE | 2019-02-23 06:30 | NUR ---
MS/RN NOTES PATIENT IN BED RESTING COMFORTABLY. BED LOCKED, CALL LIGHTS WITHIN REACH, ENDORSED TO AM RN FOR SHELLY.
--- NOTE | 2019-02-23 07:10 | NUR ---
MS/RN - Assessment Patient in bed awake, alert to self, no c/o pain, denies shortness of breath, on oxygen at 4lpm via NC, no apparent distress seen. Saline lock on the RFA is patent, intact, with no signs of infiltration. Skin assessment done, noted with BUE/BLE ecchymosis, MASD on bilateral groin area. Patient fell last night and sustained left shoulder skin tear. Sitter at bedside for safety. Fall and aspiration precautions maintained. Labs reviewed with no critical results. Will continue with current medical management.
[2019-02-23] MEDS: LEVOTHYROXINE SODIUM 50 MCG TABLET PO SCH (07:39)
[2019-02-23] MEDS: methylPREDNISolone SOD SUCC 40 MG/ML VIAL IV SCH ×3 (08:16→16:23)
[2019-02-23] MEDS: ASPIRIN 81 MG TAB.CHEW PO SCH (08:16)
[2019-02-23] MEDS: LACTOBACILLUS RHAMNOSUS GG 1 EACH CAP.SPRINK PO SCH ×2 (08:16→16:23)
[2019-02-23] MEDS: busPIRone 5 MG TABLET PO SCH ×2 (08:16→16:23)
[2019-02-23] MEDS: MULTIVIT W/MINERALS 1 TAB TABLET PO SCH (08:16)
[2019-02-23 08:20] LABS: BASOPHILS % (AUTO) 0.2 % (0.0-2.0); HEMATOCRIT 38 % (33-45); HEMOGLOBIN 11.4 g/dL (11.5-14.8); LYMPHOCYTES # (AUTO) 0.6 /CMM (0.8-4.8); LYMPHOCYTES % (AUTO) 4.3 % (20.0-44.0); MEAN CORPUSCULAR HGB CONC 30 g/dl (31.0-36.0); MEAN CORPUSCULAR VOLUME 80 fL (82-100); MONOCYTES # (AUTO) 0.4 /CMM (0.1-1.30); MONOCYTES % (AUTO) 2.9 % (2.0-12.0); NEUTROPHILS # (AUTO) 11.9 /CMM (1.8-8.9); NEUTROPHILS % (AUTO) 92.6 % (43.0-81.0); PLATELET COUNT (AUTO) 376 /CMM (150-450); RED BLOOD CELL COUNT(AUTO) 4.82 MIL/uL (4.0-5.2); WHITE BLOOD COUNT (AUTO) 12.9 K/uL (4.3-11.0)
[2019-02-23 08:29] LABS: BAND % (MANUAL) 2 % (0.0-5.0); LYMPHOCYTES % (MANUAL) 5 % (16-48); MONOCYTES % (MANUAL) 1 % (0-11.0); MYELOCYTES % 1 % (0-0); NEUTROPHILS % (MANUAL) 91 (42-76)
[2019-02-23 09:01] LABS: ALANINE AMINOTRANSFERASE 10 U/L (12-78); ALBUMIN 2.3 g/dL (3.4-5.0); ALKALINE PHOSPHATASE 67 U/L (46-116); ASPARTATE AMINOTRANSFERASE 19 U/L (15-37); BILIRUBIN,TOTAL 0.3 mg/dL (0.2-1.0); CALCIUM, SERUM 8.9 mg/dL (8.5-10.1); CARBON DIOXIDE 30 mmol/L (21-32); CHLORIDE 107 mmol/L (98-107); CREATININE 1.2 mg/dL (0.6-1.3); GLUCOSE 127 mg/dL (74-106); MAGNESIUM 2.4 mg/dL (1.8-2.4); PHOSPHORUS 4.1 mg/dL (2.5-4.9); POTASSIUM 4.4 mmol/L (3.5-5.1); SODIUM SERUM 147 mmol/L (136-145); TOTAL PROTEIN, SERUM 6.8 g/dL (6.4-8.2); UREA NITROGEN, BLOOD 39 mg/dL (7-18)
--- NOTE | 2019-02-23 10:30 | NUR ---
MS/RN - Notes Patient resting in bed, calm and cooperative with care, wound treatment done. Will continue to monitor closely.
--- NOTE | 2019-02-23 11:02 | NUR ---
WOUND CARE CONSULT WOUND CARE RECEIVED CONSULT FOR MULTIPLE SKIN DISCOLORATIONS UPPER AND LOWER EXTREMITIES. WOUND CARE WILL DEFER CONSULT AND TREATMENT PLANS TO PLASTIC SURGICAL TEAM WHO ARE CURRENTLY FOLLOWING THIS PATIENT. PATIENT WITH ISAAC AT 13, ALL PRESSURE ULCER PREVENTION MEASURES ARE NOTED TO BE IN PLACE AT THIS TIME. WILL SEE PRN.
--- NOTE | 2019-02-23 14:00 | NUR ---
MS/RN - Notes Patient awake, denies pain, not in any form of distress, will continue to monitor closely.
[2019-02-23] MEDS: SERTRALINE HCL 25 MG TABLET PO SCH (16:23)
--- NOTE | 2019-02-23 18:36 | NUR ---
MS/RN - End of shift summary Patient awake, alert to self, verbally responsive, speech is clear, remain afebrile, denies pain, not in any form of distress. Fall and aspiration precautions maintained. Sitter at bedside for close monitoring. Possible discharge to SNF tomorrow if stable. Will continue with current plan of care.
[2019-02-23 20:00] VITALS: BP 131/68
--- NOTE | 2019-02-23 20:00 | NUR ---
MS/RN OPENING NOTES RECEIVED PATIETN IN BED, AWAKE, ABLE TO OPEN EYES AND RESPOND TO CARE, RESPIRATIONS EVEN AND UNLABORED, SKIN WARM TO TOUCH, ON OXYGEN VIA NC AT 2 LITER WITH SITTER FOR SAFETY. BED LOCKED, CALL LIGHTS WITHIN REACH, WILL MONITOR.IV ON RFA GAUGE 20 PATENT WILL MONITOR.
[2019-02-23] MEDS: ENOXAPARIN SODIUM 40 MG/0.4 ML DISP.SYRIN SQ SCH (20:23)
[2019-02-23] MEDS: SENNOSIDES 8.6 MG TABLET PO SCH (22:03)
[2019-02-23] MEDS: QUETIAPINE FUMARATE 25 MG TABLET PO SCH (22:03)
[2019-02-24] MEDS: PIPERACILLIN /TAZOBACTAM 3.375 G in IV D5W 50 ML IV SCH (06:01)
[2019-02-24 06:23] LABS: BASOPHILS % (AUTO) 0.1 % (0.0-2.0); HEMATOCRIT 38 % (33-45); HEMOGLOBIN 11.3 g/dL (11.5-14.8); LYMPHOCYTES # (AUTO) 0.9 /CMM (0.8-4.8); LYMPHOCYTES % (AUTO) 6.2 % (20.0-44.0); MEAN CORPUSCULAR HGB CONC 30 g/dl (31.0-36.0); MEAN CORPUSCULAR VOLUME 79 fL (82-100); MONOCYTES # (AUTO) 0.7 /CMM (0.1-1.30); MONOCYTES % (AUTO) 4.8 % (2.0-12.0); NEUTROPHILS # (AUTO) 12.9 /CMM (1.8-8.9); NEUTROPHILS % (AUTO) 88.9 % (43.0-81.0); PLATELET COUNT (AUTO) 428 /CMM (150-450); RED BLOOD CELL COUNT(AUTO) 4.87 MIL/uL (4.0-5.2); WHITE BLOOD COUNT (AUTO) 14.6 K/uL (4.3-11.0)
--- NOTE | 2019-02-24 06:40 | NUR ---
MS/RN NOTES PATIENT IN BED, ABLE TO SLEEP DURING THE NIGHT REQUIRE FREQUENT REORIENTATION FOR SAFETY WITH SITTER, KEPT SKIN INTACT AND DRY, BED LOCKED,CALL LIGHTS WITHN NITESH. WILL ENDORSE TO AM RN FOR SHELLY.
[2019-02-24 06:54] LABS: MAGNESIUM 2.3 mg/dL (1.8-2.4); PHOSPHORUS 3.4 mg/dL (2.5-4.9); POTASSIUM 3.9 mmol/L (3.5-5.1)
--- NOTE | 2019-02-24 07:10 | NUR ---
MS RN OPENING RECEIVED PATIENT SLEEPING. AROUSABLE TO VERBAL AND TACTILE STIMULI, ABLE TO FOLLOW COMMAND. NO ACUTE DISTRESS OR SOB NOTED. A/OX1. 4L O2 VIA NC. SITTER AT BEDSIDE. NEUROCHECKS Q2HR NOTED. WILL CONTINUE TO MONITOR
[2019-02-24 08:00] VITALS: BP 84/60
[2019-02-24] MEDS: ASPIRIN 81 MG TAB.CHEW PO SCH (09:26)
[2019-02-24] MEDS: MULTIVIT W/MINERALS 1 TAB TABLET PO SCH (09:26)
[2019-02-24] MEDS: LACTOBACILLUS RHAMNOSUS GG 1 EACH CAP.SPRINK PO SCH (09:27)
[2019-02-24] MEDS: busPIRone 5 MG TABLET PO SCH (09:27)
[2019-02-24] MEDS: methylPREDNISolone SOD SUCC 40 MG/ML VIAL IV SCH (09:27)
[2019-02-24] MEDS: LEVOTHYROXINE SODIUM 50 MCG TABLET PO SCH (09:31)
--- NOTE | 2019-02-24 13:00 | NUR ---
RN D/C NOTE RECEIVED D/C ORDER FOR SNF FROM DR. LEZAMA. REPORT CALLED TO TERRA LLOYD AT [facility]. PATIENT A/OX1, BASELINE. AWAKE, FOLLOWS COMMANDS. NO ACUTE DISTRESS OR SOB. ATTACHED TO 5L O2 VIA NC, SPO2 95%. VERBALIZED TO PARAMEDICS AND TERRA LLOYD AT [facility] IMPORTANCE OF O2. WOUND PICTURES TAKEN. IV CATH REMOVED, INTACT, NO S/S BLEEDING. NO ABX PRESCRIBED. BELONGINGS CHECKLIST SIGNED. PATIENT DNR, POLST IN PATIENT PACKET
== END 2019-02-24 13:30 | DRG 177 ==
LOC: ER 15:16 → MED 17:30 → TELE 18:47 → MED 02-20 12:33
PROVIDERS: ADMIT Internal Medicine; ATTEND Internal Medicine
DX: J15.6 Pneumonia due to other Gram-negative bacteria (principal); I21.A1 Myocardial infarction type 2; G93.41 Metabolic encephalopathy; I50.33 Acute on chronic diastolic (congestive) heart failure; J96.01 Acute respiratory failure with hypoxia; N17.0 Acute kidney failure with tubular necrosis; J44.0 Chronic obstructive pulmonary disease with (acute) lower respiratory infection; J44.1 Chronic obstructive pulmonary disease with (acute) exacerbation; I11.0 Hypertensive heart disease with heart failure; E03.9 Hypothyroidism, unspecified; E78.5 Hyperlipidemia, unspecified; F41.9 Anxiety disorder, unspecified; I25.10 Atherosclerotic heart disease of native coronary artery without angina pectoris; Z87.891 Personal history of nicotine dependence; K21.9 Gastro-esophageal reflux disease without esophagitis; M81.0 Age-related osteoporosis without current pathological fracture; F03.90 Unspecified dementia, unspecified severity, without behavioral disturbance, psychotic disturbance, mood disturbance, and anxiety; D63.8 Anemia in other chronic diseases classified elsewhere; S40.022A Contusion of left upper arm, initial encounter; S40.021A Contusion of right upper arm, initial encounter; X58.XXXA Exposure to other specified factors, initial encounter; Y93.9 Activity, unspecified; Y92.129 Unspecified place in nursing home as the place of occurrence of the external cause; L98.8 Other specified disorders of the skin and subcutaneous tissue; Z66 Do not resuscitate; Z79.82 Long term (current) use of aspirin; H40.9 Unspecified glaucoma
CPT/HCPCS: 36415; 71045-TC; 80048-TC; 80053-TC; 80061-TC; 80076-TC; 80202-TC; 81000-TC; 82550-TC; 82570-TC; 83735-TC; 83880; 83970; 84100-TC; 84155-TC; 84300-TC; 84439-TC; 84484-TC; 85025-TC; 85378-TC; 87081-TC; 92526; 92611-TC; 93307-TC; G0378; J0696; J1650; J1940; J2543; J2920; J3370; J7050; J7060; Q9967